=== PATIENT | female | born 1955 ===

== ENCOUNTER 2025-09-15 08:52 | Outpatient (CLI) | payer OTHER ==
[2025-09-15 09:45] LABS: BASO % 0.9 % (0.1-1.2); EOS # 0.22 (0.04-0.54); EOS % 4.7 % (0.7-7.0); LYMPH # 1.73 (1.18-3.74); LYMPH % 37.3 % (19.3-53.1); MEAN PLATELET VOLUME 12.20 fl (9.4-12.4); MONO # 0.31 (0.24-0.82); MONO % 6.7 % (4.7-12.5); NEUT # 2.33 (1.56-6.13); NEUT % 50.2 % (34.0-71.1); RED CELL DISTRIBUTION WIDTH 13.2 % (11.6-14.4)
[2025-09-15 10:33] LABS: % SATURACION 12.5 % (15-50); ALT/SGPT 18.0 U/L (12-78); AST/SGOT 19.0 U/L (15-37); BILIRUBIN TOTAL 0.79 mg/dL (0.3-1.2); BUN CREA RATIO 20.0 (7.0-25.0); CREATININE SERUM 0.94 mg/dL (0.55-1.02); FE 46.0 ug/dl (50-170); GFR 58.7; GLOBULINA 3.2 G/DL (2.4-3.5); GLUCOSE FASTING 90.0 mg/dL (65-100); LDH 361.0 U/L (84-246); OSMOLALITY SERUM 287.0 MOSM/KG (275-295)
[2025-09-15 11:09] LABS: FOLIC ACID > 20.00 ng/ml (4.78-20); VITAMIN D3 25 HYDROXY 69.55 ng/ml (30-120)
[2025-09-16 18:07] LABS: ERYTHROPOIETIN 10.3 mIU/mL (2.6-18.5)
[2025-09-17 18:07] LABS: PARIETAL CELL ANTIBODIES 4.0 Units (0.0-20.0)
== END 2025-09-15 08:53 | disposition home or self-care (01) ==
LOC: LAB 08:52
PROVIDERS: ATTEND Internal Medicine Hematology & Oncology
DX: D51.3 Other dietary vitamin B12 deficiency anemia (principal); D72.818 Other decreased white blood cell count; E55.9 Vitamin D deficiency, unspecified; E03.9 Hypothyroidism, unspecified; E78.2 Mixed hyperlipidemia; B15.9 Hepatitis A without hepatic coma; D50.8 Other iron deficiency anemias; I10 Essential (primary) hypertension; R74.02 Elevation of levels of lactic acid dehydrogenase [LDH]; K76.89 Other specified diseases of liver; R79.9 Abnormal finding of blood chemistry, unspecified; D51.1 Vitamin B12 deficiency anemia due to selective vitamin B12 malabsorption with proteinuria